=== PATIENT | male | born 1990 ===

== ENCOUNTER 2016-09-19 09:31 | Emergency (ER) | payer SELFPAY ==
[2016-09-19] MEDS ORDERED: Triamcinolone Acetonide* 40 MG/ML 1 ML VIAL IM ONE (09:42)
--- NOTE | 2016-09-19 09:49 | UC ---
Skin Complaint HPI - HPI Summary HPI Summary: 25 yo male with rash x 1 day pruritic has been fishing - History of Current Complaint Chief Complaint: UCAllergicReaction Time Seen by Provider: 09/19/16 09:36 Stated Complaint: ALLERGIC REACTION Hx Obtained From: Patient Onset/Duration: Gradual Onset, Lasting Hours Timing: Constant Onset Severity: Mild Current Severity: Mild Pain Intensity: 0 Pain Scale Used: 0-10 Numeric Location: Other - see imate Character: Pruritus, Redness, Raised Aggravating: Nothing Associated Signs & Symptoms: Positive: Rash Related History: Possible Reaction to: Environmental Exposure - Allergy/Home Medications Allergies/Adverse Reactions: Allergies Allergy/AdvReac Type Severity Reaction Status Date / Time Azithromycin [From Zithromax] Allergy Hives Verified 09/19/16 09:34 Home Medications: Home Medications NK [No Home Medications Reported] 09/19/16 [History Confirmed 09/19/16] Review of Systems Constitutional: Negative Skin: Rash Eyes: Negative ENT: Negative Respiratory: Negative Cardiovascular: Negative Gastrointestinal: Negative Genitourinary: Negative Motor: Negative Neurovascular: Negative Musculoskeletal: Negative Neurological: Negative Psychological: Negative All Other Systems Reviewed And Are Negative: Yes PMH/Surg Hx/FS Hx/Imm Hx Previously Healthy: Yes - Surgical History Surgical History: None - Family History Known Family History: Positive: Hypertension - Social History Alcohol Use: Occasionally Substance Use Type: None Smoking Status (MU): Never Smoked Tobacco Physical Exam Triage Information Reviewed: Yes Appearance: Well-Appearing, No Pain Distress, Well-Nourished Vital Signs: Initial Vital Signs Temp 98.1 F 09/19/16 09:32 Pulse 57 09/19/16 09:32 Resp 18 09/19/16 09:32 BP 120/70 09/19/16 09:32 Pulse Ox 99 09/19/16 09:32 Vital Signs Reviewed: Yes Eyes: Positive: Conjunctiva Clear ENT: Positive: Normal ENT inspection Dental Exam: Normal Neck: Positive: Supple, Nontender, No Lymphadenopathy Respiratory: Positive: Lungs clear, Normal breath sounds, No respiratory distress, No accessory muscle use Cardiovascular: Positive: RRR, No Murmur Neurological Exam: Normal Neurological: Positive: Alert Psychological Exam: Normal Skin Exam: Other - see image Course/Dx - Diagnoses Provider Diagnoses: contact dermatitis Discharge - Discharge Plan Condition: Stable Disposition: HOME Patient Education Materials: Contact Dermatitis (ED) Referrals: Roger Healy MD [Primary Care Provider] - 6 Days (if not marledly improved) Additional Instructions: oral benadryl if you need it Images Head: 1 - red/raised, lid edema Front/Back of Body, Lg ([place]): 1 - red/raised 2 - red/raised
== END 2016-09-19 10:19 | disposition home or self-care (01) ==
LOC: UCEAST 09:31
DX: L25.9 Unspecified contact dermatitis, unspecified cause (principal); Z88.1 Allergy status to other antibiotic agents
CPT/HCPCS: 96372; 99201; G0463; J3301